=== PATIENT | female | born 1965 | race Caucasian/White ===

== ENCOUNTER 2018-07-08 08:51 | Inpatient (IN) | payer MEDICAID, BC, OTHER ==
[2018-07-08 10:43] LABS: HEMOGLOBIN 13.8 g/dl (12.0-15.5); MEAN CORPUSCULAR HEMOGLOBIN 30.7 pg (27.0-33.0); MEAN CORPUSCULAR HGB CONC 32.9 g/dl (32.0-36.5); MEAN CORPUSCULAR VOLUME 93.5 fl (80.0-96.0); PLATELET COUNT, AUTOMATED 364 10^3/uL (150-450); RED BLOOD COUNT 4.49 10^6/uL (4.00-5.40); RED CELL DISTRIBUTION WIDTH 13.6 % (11.5-14.5); WHITE BLOOD COUNT 11.5 10^3/uL (4.0-10.0)
[2018-07-08 11:20] LABS: ACETAMINOPHEN LEVEL < 2.0 UG/ML (10.0-30.0); ALBUMIN 3.9 GM/DL (3.2-5.2); ALBUMIN/GLOBULIN RATIO 1.18 (1.00-1.93); ALKALINE PHOSPHATASE 102 U/L (45-117); ALT/SGPT 29 U/L (12-78); ANION GAP 10 MEQ/L (8-16); AST/SGOT 19 U/L (7-37); BILIRUBIN,DIRECT 0.1 MG/DL (0.0-0.2); BILIRUBIN,TOTAL 0.6 MG/DL (0.2-1.0); BLOOD UREA NITROGEN 11 MG/DL (7-18); CALCIUM LEVEL 9.1 MG/DL (8.5-10.1); CARBON DIOXIDE LEVEL 24 MEQ/L (21-32); CHLORIDE LEVEL 110 MEQ/L (98-107); CREATININE FOR GFR 0.84 MG/DL (0.55-1.30); ETHYL ALCOHOL (ETHANOL) 0.003 % (0.000-0.010); GLOMERULAR FILTRATION RATE > 60.0 (>51); GLUCOSE, FASTING 80 MG/DL (70-100); POTASSIUM SERUM 4.3 MEQ/L (3.5-5.1); SALICYLATE LEVEL < 1.7 MG/DL (5.0-30.0); SODIUM LEVEL 144 MEQ/L (136-145); TOTAL PROTEIN 7.2 GM/DL (6.4-8.2)
[2018-07-08 11:40] LABS: AMPHETAMINES LEVEL URINE NEGATIVE (NEGATIVE); BARBITURATES URINE NEGATIVE (NEGATIVE); BENZODIAZEPINES URINE NEGATIVE (NEGATIVE); CANNABINOIDS URINE NEGATIVE (NEGATIVE); COCAINE METABOLITE URINE NEGATIVE (NEGATIVE); METHADONE URINE NEGATIVE (NEGATIVE); OPIATES URINE NEGATIVE (NEGATIVE); PHENCYCLIDINE URINE NEGATIVE (NEGATIVE)
[2018-07-08] MEDS ORDERED: MOM 30ML SUSPENSION UDC PO (16:15)
[2018-07-08] MEDS ORDERED: MAALOX 30 ML SUSP *UDC PO (16:15)
[2018-07-08] MEDS ORDERED: traZODone 50 MG TAB PO (16:15)
[2018-07-08] MEDS ORDERED: GLUCOSE 4 GM CHEW TABLET PO (18:00)
[2018-07-08] MEDS ORDERED: GLUCAGON FOR INJ 1 MG VIAL (J1610) SC (18:00)
[2018-07-08] MEDS ORDERED: DEXTROSE 50% 50 ML SYRINGE IV (18:00)
[2018-07-08] MEDS: metFORMIN (GLUCOPHAGE) 500 MG TAB PO (18:21)
[2018-07-08] MEDS: hydrOXYzine 50 MG TAB PO (18:23)
[2018-07-08] MEDS: DULoxetine 30 MG CAP (CYMBALTA) PO (20:59)
[2018-07-08] MEDS: PREGABALIN 75 MG CAP(LYRICA) PO (20:59)
[2018-07-08] MEDS: BASAGLAR SC (21:00)
[2018-07-08] MEDS: HumaLOG INSULIN (NovoLOG) PER UNIT SC (21:00)
[2018-07-08 22:49] LABS: BEDSIDE GLUCOSE 99 MG/DL (70-105)
[2018-07-09] MEDS: HumaLOG INSULIN (NovoLOG) PER UNIT SC ×4 (06:13→20:59)
[2018-07-09 06:14] LABS: BEDSIDE GLUCOSE 93 MG/DL (70-105)
[2018-07-09] MEDS: hydrOXYzine 50 MG TAB PO (06:50)
[2018-07-09] MEDS: ASPIRIN 81 MG ENTERIC TAB PO (08:01)
[2018-07-09] MEDS: ATORVASTATIN 10 MG TAB PO (08:01)
[2018-07-09] MEDS: PREGABALIN 75 MG CAP(LYRICA) PO ×3 (08:01→20:59)
[2018-07-09] MEDS: FLUTICASONE PROP 0.05% NASAL SPRAY 16 GM (FLONASE) NARES (08:01)
[2018-07-09] MEDS: metFORMIN (GLUCOPHAGE) 500 MG TAB PO ×2 (08:01→17:32)
[2018-07-09] MEDS: DULoxetine 30 MG CAP (CYMBALTA) PO (08:02)
[2018-07-09] MEDS: FAMOTIDINE 20 MG TAB PO (08:02)
[2018-07-09 12:33] LABS: BEDSIDE GLUCOSE 118 MG/DL (70-105)
[2018-07-09 17:27] LABS: BEDSIDE GLUCOSE 138 MG/DL (70-105)
[2018-07-09] MEDS: NORTRIPTYLINE 25 MG CAP PO (20:58)
[2018-07-09] MEDS: BASAGLAR SC (21:00)
[2018-07-09 21:01] LABS: BEDSIDE GLUCOSE 138 MG/DL (70-105)
[2018-07-10] MEDS: ACETAMINOPHEN TAB 650MG DOSE (2X325MG) PO ×3 (05:31→21:06)
[2018-07-10] MEDS: HumaLOG INSULIN (NovoLOG) PER UNIT SC (06:55)
[2018-07-10 06:56] LABS: BEDSIDE GLUCOSE 116 MG/DL (70-105)
[2018-07-10] MEDS: PREGABALIN 75 MG CAP(LYRICA) PO ×3 (08:02→21:06)
[2018-07-10] MEDS: FAMOTIDINE 20 MG TAB PO (08:02)
[2018-07-10] MEDS: ATORVASTATIN 10 MG TAB PO (08:02)
[2018-07-10] MEDS: ASPIRIN 81 MG ENTERIC TAB PO (08:02)
[2018-07-10] MEDS: metFORMIN (GLUCOPHAGE) 500 MG TAB PO ×2 (08:03→17:42)
[2018-07-10 08:26] LABS: BASO # 0.1 10^3/uL (0.0-0.2); BASO % 0.8 % (0.0-1.0); EOS # 0.2 10^3/uL (0.0-0.50); EOS % 2.1 % (0.0-3.0); HEMATOCRIT 41.5 % (36.0-47.0); HEMOGLOBIN 13.7 g/dl (12.0-15.5); IMMATURE GRANULOCYTE % 0.3 % (0-3.0); LYMPH # 3.3 10^3/uL (1.5-4.5); LYMPH % 29.8 % (24.0-44.0); MEAN CORPUSCULAR HEMOGLOBIN 30.4 pg (27.0-33.0); MEAN CORPUSCULAR VOLUME 92.2 fl (80.0-96.0); MONO # 1.2 10^3/uL (0.0-0.8); MONO % 10.7 % (0.0-5.0); NEUTROPHILS # 6.3 10^3/uL (1.8-7.7); NEUTROPHILS % 56.3 % (36.0-66.0); PLATELET COUNT, AUTOMATED 385 10^3/uL (150-450); RED CELL DISTRIBUTION WIDTH 13.7 % (11.5-14.5); WHITE BLOOD COUNT 11.2 10^3/uL (4.0-10.0)
[2018-07-10] MEDS: hydrOXYzine 50 MG TAB PO (09:41)
[2018-07-10] MEDS: FLUTICASONE PROP 0.05% NASAL SPRAY 16 GM (FLONASE) NARES (09:41)
[2018-07-10] MEDS: lamoTRIgine 25 MG TAB PO ×2 (12:05→21:05)
[2018-07-10] MEDS: NORTRIPTYLINE 25 MG CAP PO (21:05)
[2018-07-10] MEDS: BASAGLAR SC (21:10)
[2018-07-11] MEDS: hydrOXYzine 50 MG TAB PO (06:29)
[2018-07-11] MEDS: FLUTICASONE PROP 0.05% NASAL SPRAY 16 GM (FLONASE) NARES (08:27)
[2018-07-11] MEDS: lamoTRIgine 25 MG TAB PO ×2 (08:28→21:10)
[2018-07-11] MEDS: ASPIRIN 81 MG ENTERIC TAB PO (08:28)
[2018-07-11] MEDS: ATORVASTATIN 10 MG TAB PO (08:28)
[2018-07-11] MEDS: PREGABALIN 75 MG CAP(LYRICA) PO ×3 (08:28→21:12)
[2018-07-11] MEDS: FAMOTIDINE 20 MG TAB PO (08:28)
[2018-07-11] MEDS: metFORMIN (GLUCOPHAGE) 500 MG TAB PO ×2 (08:28→17:30)
[2018-07-11] MEDS: LORazepam 1 MG TAB PO (09:22)
[2018-07-11] MEDS: IBUPROFEN 600 MG TAB PO ×2 (13:04→21:12)
[2018-07-11 17:32] LABS: BEDSIDE GLUCOSE 91 MG/DL (70-105)
[2018-07-11] MEDS: NORTRIPTYLINE 25 MG CAP PO (21:11)
[2018-07-11] MEDS: BASAGLAR SC (21:13)
[2018-07-12 06:26] LABS: BEDSIDE GLUCOSE 93 MG/DL (70-105)
[2018-07-12] MEDS: LORazepam 1 MG TAB PO (08:29)
[2018-07-12] MEDS: lamoTRIgine 25 MG TAB PO ×2 (08:29→21:11)
[2018-07-12] MEDS: PREGABALIN 75 MG CAP(LYRICA) PO ×3 (08:29→21:12)
[2018-07-12] MEDS: ASPIRIN 81 MG ENTERIC TAB PO (08:29)
[2018-07-12] MEDS: FAMOTIDINE 20 MG TAB PO (08:29)
[2018-07-12] MEDS: ATORVASTATIN 10 MG TAB PO (08:29)
[2018-07-12] MEDS: metFORMIN (GLUCOPHAGE) 500 MG TAB PO ×2 (08:29→17:01)
[2018-07-12] MEDS: FLUTICASONE PROP 0.05% NASAL SPRAY 16 GM (FLONASE) NARES (08:30)
[2018-07-12] MEDS: busPIRone 5 MG TAB PO ×2 (15:03→21:12)
[2018-07-12 19:40] LABS: FOLLICLE STIMULATING HORMONE 86.6 mIU/mL; LUTEINIZING HORMONE 60.7 mIU/mL
[2018-07-12] MEDS: BASAGLAR SC (21:14)
[2018-07-13] MEDS: hydrOXYzine 50 MG TAB PO (06:29)
[2018-07-13 06:32] LABS: BEDSIDE GLUCOSE 102 MG/DL (70-105)
[2018-07-13] MEDS: LORazepam 1 MG TAB PO (07:33)
[2018-07-13] MEDS: PARoxetine 12.5 MG **CR** TAB PO (08:23)
[2018-07-13] MEDS: FLUTICASONE PROP 0.05% NASAL SPRAY 16 GM (FLONASE) NARES (08:23)
[2018-07-13] MEDS: lamoTRIgine 25 MG TAB PO ×2 (08:23→21:03)
[2018-07-13] MEDS: FAMOTIDINE 20 MG TAB PO (08:23)
[2018-07-13] MEDS: ASPIRIN 81 MG ENTERIC TAB PO (08:23)
[2018-07-13] MEDS: ATORVASTATIN 10 MG TAB PO (08:23)
[2018-07-13] MEDS: metFORMIN (GLUCOPHAGE) 500 MG TAB PO ×2 (08:23→17:34)
[2018-07-13] MEDS: busPIRone 5 MG TAB PO ×2 (08:23→15:16)
[2018-07-13] MEDS: PREGABALIN 75 MG CAP(LYRICA) PO ×2 (08:23→15:16)
[2018-07-13] MEDS: PREGABALIN 100 MG CAP (LYRICA) PO (21:02)
[2018-07-13] MEDS: BASAGLAR SC (21:04)
[2018-07-14 07:23] LABS: BEDSIDE GLUCOSE 91 MG/DL (70-105)
[2018-07-14] MEDS: LORazepam 1 MG TAB PO (07:42)
[2018-07-14] MEDS: FLUTICASONE PROP 0.05% NASAL SPRAY 16 GM (FLONASE) NARES (08:43)
[2018-07-14] MEDS: ASPIRIN 81 MG ENTERIC TAB PO (08:43)
[2018-07-14] MEDS: ATORVASTATIN 10 MG TAB PO (08:43)
[2018-07-14] MEDS: lamoTRIgine 25 MG TAB PO ×2 (08:43→20:52)
[2018-07-14] MEDS: FAMOTIDINE 20 MG TAB PO (08:43)
[2018-07-14] MEDS: metFORMIN (GLUCOPHAGE) 500 MG TAB PO ×2 (08:43→17:02)
[2018-07-14] MEDS: PREGABALIN 100 MG CAP (LYRICA) PO ×2 (08:43→20:53)
[2018-07-14] MEDS: PARoxetine 12.5 MG **CR** TAB PO (08:43)
[2018-07-14] MEDS: ANEXSIA, NORCO 7.5MG/325MG TABLET(HYDROCODONE/APAP) PO (11:25)
[2018-07-14 16:39] LABS: BEDSIDE GLUCOSE 146 MG/DL (70-105)
[2018-07-14] MEDS: BASAGLAR SC (20:53)
[2018-07-15] MEDS: metFORMIN (GLUCOPHAGE) 500 MG TAB PO (07:21)
[2018-07-15] MEDS: LORazepam 1 MG TAB PO (07:21)
[2018-07-15] MEDS: PARoxetine 12.5 MG **CR** TAB PO (08:22)
[2018-07-15] MEDS: FLUTICASONE PROP 0.05% NASAL SPRAY 16 GM (FLONASE) NARES (08:22)
[2018-07-15] MEDS: ATORVASTATIN 10 MG TAB PO (08:22)
[2018-07-15] MEDS: PREGABALIN 100 MG CAP (LYRICA) PO (08:22)
[2018-07-15] MEDS: lamoTRIgine 25 MG TAB PO (08:23)
[2018-07-15] MEDS: ASPIRIN 81 MG ENTERIC TAB PO (08:23)
[2018-07-15] MEDS: FAMOTIDINE 20 MG TAB PO (08:23)
== END 2018-07-15 11:40 | disposition home or self-care (01) | DRG 751 ==
LOC: M ED 08:51 → M ED INP 16:09 → M PSY 16:40
DX: F33.2 Major depressive disorder, recurrent severe without psychotic features (principal); M79.7 Fibromyalgia; Z79.82 Long term (current) use of aspirin; Z79.4 Long term (current) use of insulin; Z79.899 Other long term (current) drug therapy; Z88.7 Allergy status to serum and vaccine; G47.33 Obstructive sleep apnea (adult) (pediatric); E11.9 Type 2 diabetes mellitus without complications; E78.00 Pure hypercholesterolemia, unspecified; J30.9 Allergic rhinitis, unspecified

== ENCOUNTER → 2022-03-25 | Outpatient (CLI) | payer MEDICAID, OTHER, MEDICARE ==
[~2022-03-25] MED LIST: ASPI81TA26 PO; ATOR1TAB19 PO; BASA100I SC; CROM5SOL OU; CYMB60CA4 PO; ERGO500029; ESOM40CA35; FAMO40TA3 PO; FLON1SPR NARES; FLUO10CA18; HYDR-3363 PO; HYDR-3719; LAMI25TA PO; LANTINJ4; LYRI150C PO; MAXA10TA14 PO; METF-838; METF500T13 PO; METH-1164; PARO12.56 PO; PAXI20TA29 PO; PREG100CA PO; PREG75CA2; VITA100T59 PO; VITA50005 PO; [UNRECOGNIZED DRUG - OTHER]
== END ==
LOC: M LABSMTC 11:30
PROVIDERS: ATTEND Anesthesiology
DX: Z01.812 Encounter for preprocedural laboratory examination (principal); Z11.52 Encounter for screening for COVID-19

== ENCOUNTER → 2022-05-17 | Outpatient (CLI) | payer MEDICAID, OTHER, MEDICARE ==
[~2022-05-17] MED LIST changes: -ERGO500029; +ERGO500029 PO; -ESOM40CA35; +ESOM40CA35 PO; -FLUO10CA18; +FLUO10CA18 PO; -HYDR-3719; +HYDR-3719 PO; -METH-1164; +METH-1164 PO; -PREG75CA2; +PREG75CA2 PO
== END ==
LOC: M LABSMTC 10:54
PROVIDERS: ATTEND Anesthesiology
DX: Z01.812 Encounter for preprocedural laboratory examination (principal); Z20.822 Contact with and (suspected) exposure to COVID-19

== ENCOUNTER 2022-05-22 06:38 | Day surgery (SDC) | payer MEDICARE ==
[~2022-05-22] VITALS: Ht 157.5 cm; Wt 73.9 kg
[~2022-05-22 06:38] MED LIST changes: +NS 1,000 ML IV ONE
[2022-05-22] MEDS ORDERED: propofoL 200 MG/20 ML VIAL As Ordered ONE ×2 (07:01→07:19)
[2022-05-22] MEDS ORDERED: LIDOCAINE 2% 100MG/5ML SDV (FOR ANES.) As Ordered ONE (07:01)
[2022-05-22 08:35] VITALS: BP 183/82
== END 2022-05-22 08:45 | disposition home or self-care (01) ==
LOC: M OPP 06:38
PROVIDERS: ATTEND Internal Medicine Gastroenterology
DX: Z12.11 Encounter for screening for malignant neoplasm of colon (principal); Z80.0 Family history of malignant neoplasm of digestive organs; R12 Heartburn; R68.81 Early satiety; R14.2 Eructation; R11.0 Nausea; D12.5 Benign neoplasm of sigmoid colon; K64.8 Other hemorrhoids; E10.9 Type 1 diabetes mellitus without complications; K21.9 Gastro-esophageal reflux disease without esophagitis; M79.7 Fibromyalgia; F41.9 Anxiety disorder, unspecified; F32.A Depression, unspecified; G43.909 Migraine, unspecified, not intractable, without status migrainosus; G47.30 Sleep apnea, unspecified; Z88.7 Allergy status to serum and vaccine; Z79.4 Long term (current) use of insulin; Z79.82 Long term (current) use of aspirin; Z79.899 Other long term (current) drug therapy; Z80.42 Family history of malignant neoplasm of prostate; Z80.1 Family history of malignant neoplasm of trachea, bronchus and lung

== ENCOUNTER → 2024-02-10 | Outpatient (CLI) | payer MEDICARE ==
[~2024-02-10] MED LIST changes: +CROM4SOL4 OU; -CROM5SOL OU; -MAXA10TA14 PO; -NS 1,000 ML IV ONE; -PAXI20TA29 PO; +PAXI20TA30 PO; -PREG75CA2 PO; +PREG75CA3 PO; +RIZA10TA64 PO
== END ==
LOC: M RAD 08:04
PROVIDERS: ATTEND Nurse Practitioner Family
DX: K21.9 Gastro-esophageal reflux disease without esophagitis (principal)
CPT/HCPCS: 78264; A9541